=== PATIENT | male | born 1970 | race Caucasian/White ===

== ENCOUNTER 2019-05-05 10:46 | Outpatient (CLI) | payer OTHER, SELFPAY ==
[2019-05-07 15:25] LABS: SARS-CoV-2 RNA Undetected (Undetected); SARS-CoV-2 Specimen Source Nasopharynx
== END 2019-05-05 11:06 ==
PROVIDERS: PCP Internal Medicine; Visit Provider Specialist/Technologist Athletic Trainer
DX: Z20.828 Contact with and (suspected) exposure to other viral communicable diseases (principal); Z11.59 Encounter for screening for other viral diseases; R50.9 Fever, unspecified
CPT/HCPCS: 87449; U0003

== ENCOUNTER 2020-08-01 14:21 | Emergency (ER) | payer OTHER, SELFPAY ==
[2020-08-01 14:26] VITALS: BP 104/64; PULSE 97; RESP 15; TEMP 36; O2SAT 97
--- NOTE | 2020-08-01 14:30 | DI.CT_ITS ---
Exam(s) CT RENAL COLIC WO EXAM: CT RENAL COLIC WO CLINICAL HISTORY: R flank pain, nausea. TECHNIQUE: Imaging Protocol: Axial computed tomography images with coronal and sagittal reformatted images were created and reviewed CONTRAST MATERIAL: Intravenous: none Oral: None COMPARISON: CT RENAL COLIC WO CONTRAST from 05/18/2010 FINDINGS: VISUALIZED LUNG BASES: No nodules nor pleural effusions evident. ABDOMEN: There is no ascites. LIVER: Liver is somewhat hypodense implying steatosis. There are no discrete focal hepatic lesions i dentified, realizing the entire liver is not included on this renal calculus protocol study. GALLBLADDER/BILIARY: No obvious gallbladder pathology. CBD is not dilated. PANCREAS: No evidence of pancreatic mass nor dilatation of the pancreatic duct. SPLEEN: Spleen is not enlarged. No obvious intrasplenic lesions. ADRENALS: There are no significant adrenal masses. KIDNEYS:No cysts evident. No solid renal masses. No obvious hydronephrosis. Right ureter is minimal ly prominent and there is a 3 millimeter calculus at the right ureterovesical junction with mild dila tation of the collecting system above this level. No calculi seen in the actual kidneys. Parapelvic cyst in the opposite-left kidney noted which measures 2 x 1.2 cm. ABDOMINAL AORTA: Abdominal aorta is not enlarged. LYMPH NODES: There is no retroperitoneal nor paraaortic adenopathy. ABDOMINAL WALL: No evidence of significant anterior abdominal wall hernia. GI: There is no evidence of bowel obstruction, free air, nor abscess. PELVIS: LYMPH NODES: There is no intrapelvic nor inguinal adenopathy. GI: The appendix is surgically absent.There are few sigmoid diverticuli but no evidence of obvious ac [place] diverticulitis. URINARY BLADDER: Right ureterovesical junction 3 millimeter calculus. No calculi within the actual b ladder lumen. REPRODUCTIVE: Prostate gland is not enlarged. OSSEOUS: Benign-appearing hemangioma no is noted in the left side of the T11 vertebral body. IMPRESSION: 1. Main finding here is a 3-4 millimeter calculus in the lower right ureter at ureterovesical junctio n level with mild dilatation of the collecting system above this level. 2. No other focal right renal findings. 3. There is parapelvic cyst in the opposite-left kidney which measures 2 x 1.2 cm. RADIATION DOSE DELIVERED: 1,352.56mGy.cm Total DLP DATA REPOSITORY: All CT scans at this facility are submitted to the National Radiology Data Registry (NRDR) Dose Index Registry (DIR) with the [employer] (ACR). RADIATION OPTIMIZATION: All CT scans at this facility use at least one of these dose optimization te chniques: automated exposure control; mA and/or kV adjustment per patient size (includes targeted exa ms where dose is matched to clinical indication); or iterative reconstruction.
--- NOTE | 2020-08-01 14:34 | ED.GENADUL_ITS ---
Discharge Plan Disposition Patient Disposition: HOME Condition: Improving Discharge Details Clinical Impression: Right ureteral stone Primary Care Provider: Roberto Hylton ED Provider: Natalie Goldberg Home Meds and New Rx's Prescriptions: New tamsulosin [Flomax] 0.4 mg capsule 0.4 mg PO DAILY Qty: 10 RF: 0 oxycodone 5 mg tablet 5 mg PO Q6H PRN (Reason: pain) Qty: 10 RF: 0 Discharge Instructions Instructions: Kidney Stones (ED) Additional Instructions: Drink plenty of fluids and get plenty of rest. Alternate tylenol and motrin as needed and directed for pain. Take the oxycodone for pain not relieved with Tylenol or Motrin. Take Zofran as needed and directed for nausea and vomiting. Call Dr. Anton's office tomorrow morning to schedule a follow-up appointment for reevaluation this week if your symptoms do not improve or worsen. Return immediately to the emergency department if you develop any worsening or new concerning symptoms. Referrals: Tawanda Anton MD [ [facility] STAFF PHYSICIAN] - Discharge Data Discharge Date/Time-TO BE ENTERED AT DEPARTURE: 08/01/20 18:10 Discharge Physician: Natalie Goldberg Medical Decision Making 1430 -- 50-year-old male with a history of kidney stones presents with right flank pain and nausea consistent with history of kidney stones. Appears uncomfortable, pacing around the room and holding vomitus bag. Otherwise appears nontoxic. Suspect kidney stone. IV placed. Will order Toradol, Zofran, IV fluids, screening labs and CT renal colic. Labs and imaging reviewed. White blood cell count 11. Normal renal function. CT renal colic a 3 mm distal right ureteral obstruction calculus with mild to moderate right hydronephrosis and hydroureter. 1530 -- Patient reassessed and he states his pain only decreased from a 10/10 to an 8/10. We will give a dose of morphine and reassess. He has been unable to give a urine sample. 1610 -- pt reassessed - no pain relief - will give dilaudid IV and valium PO. 1700 -- patient reassessed and he feels much better and feels good to go home. Urinalysis noted 3-5 WBCs but negative bacteria, leukocyte esterase and nitrite. Patient placed on urology follow-up list. He was given prescriptions for oxycodone and Flomax and given oxycodone and Zofran to go. Usual and customary return precautions given prior to discharge. Medical Records Medical records reviewed: Yes I reviewed the patient's medical records. Imaging Data Radiologic Study: Radiologist's impression: CT Abdomen And Pelvis Without Contrast Exam date and time: 08/01/2020 2:42 PM Age: 50 years old Clinical indication: Abdominal pain TECHNIQUE: Imaging protocol: Computed tomography of the abdomen and pelvis without contrast. COMPARISON: No relevant prior studies available. FINDINGS: Liver: Normal as shown. No mass. Gallbladder and bile ducts: Gallbladder partially contracted. Pancreas: Normal. No ductal dilation. Spleen: Normal as shown. No splenomegaly. Adrenal glands: Normal. No mass. Kidneys and ureters: There is mild to moderate right hydronephrosis and hydroureter. There is a distal right ureteral obstructing calculus best seen series 2, image 108 just above the right UVJ. It measures slightly greater than 3 mm in diameter. New lines status post appendectomy. Incidental note made of parapelvic cysts at the left renal hilum. Stomach and bowel: Unremarkable. No obstruction. No mucosal thickening. Appendix: See Kidneys and ureters finding. Intraperitoneal space: Unremarkable. No free air. No significant fluid collection. Vasculature: Unremarkable. No abdominal aortic aneurysm. Lymph nodes: Unremarkable. No enlarged lymph nodes. Urinary bladder: Unremarkable as visualized. Reproductive: Unremarkable as visualized. Bones/joints: Unremarkable. No acute fracture. Soft tissues: Unremarkable. Other findings: The upper abdomen is not completely included on the exam. IMPRESSION: Distal right ureteral obstructing calculus. Lab Data Lab results reviewed: Yes I reviewed the patient's lab results. Labs: Laboratory Tests Range/Units 08/01/20 08/01/20 08/01/20 14:35 14:35 17:25 WBC (4.4-10.8) 10^3/uL 11.88 H RBC (4.36-5.78) 10^6/uL 4.75 Hgb (13.5-17.5) g/dL 14.6 Hct (40.0-50.0) % 43.0 MCV (80-95) fL 90.5 MCH (27.0-33.0) pg 30.7 MCHC (32.0-36.0) % 34.0 RDW (11.8-14.1) % 12.0 Plt Count (130-400) 10^3/uL 259 MPV (8.0-11.0) fL 9.5 Immature Gran % 0.5 Neutrophils % 57.0 Lymphocytes % 32.6 Monocytes % 7.4 Eosinophils % 1.6 Basophils % 0.9 Nucleated RBC % % 0 Absolute Neutrophils (1.2-6.7) 10^3/uL 6.77 H Absolute Lymphocytes (1.2-3.4) 10^3/uL 3.87 H Absolute Monocytes (0.1-0.8) 10^3/uL 0.88 H Absolute Eosinophils (0.0-0.7) 10^3/uL 0.19 Absolute Basophils (0.0-0.2) 10^3/uL 0.11 Sodium (136-145) mmol/L 144 Potassium (3.5-5.1) mmol/L 4.0 Chloride (98-107) mmol/L 106 Carbon Dioxide (21.0-32.0) mmol/L 28.3 Anion Gap (3-11) mmol/L 9.7 BUN (7-18) mg/dL 16 Creatinine (0.70-1.30) mg/dL 1.1 Estimated GFR/1.73 m2 (mL/min/1.73m2) >= 60.00 Glucose (74-106) mg/dL 124 H Calcium (8.5-10.1) mg/dL 8.8 Total Bilirubin (0.2-1.0) mg/dL 0.4 AST (15-37) U/L 25 ALT (16-63) U/L 45 Alkaline Phosphatase (46-116) U/L 72 Total Protein (6.4-8.2) g/dL 7.5 Albumin (3.4-5.0) g/dL 3.7 Urine Color (Yellow) Yellow Urine Clarity (Clear) Clear Urine pH (5-8) 5.5 Ur Specific [place] (1.005-1.025) >= 1.030 H Urine Protein (Negative) mg/dL 30 H Urine Ketones (Negative) mg/dL Negative Urine Blood (Negative) Negative Urine Nitrite (Negative) Negative Urine Bilirubin (Negative) Negative Urine Urobilinogen (Up TO 0.2) EU/dL 0.2 Ur Leukocyte Esterase (Negative) Negative Urine RBC (0-2) HPF 0-2 Urine WBC (0-5) HPF 3-5 Ur Epithelial Cells (Negative) HPF Negative Urine Crystals (Negative) HPF Negative Urine Bacteria (Negative) HPF Negative Urine Casts (Negative) LPF Negative Urine Mucus (Negative) Negative Urine Other (Negative) Negative Ur Culture Indicated? No Urine Glucose (Negative) mg/dL Negative HPI General Mode of arrival: ambulatory . Date/Time Provider Initiated Documentation: 08/01/20 14:24 . Limitations to Documentation: no limitations . Information obtained by: patient . HPI Narrative: Patient is a 50-year-old male with a previous history of kidney stones who presents with right-sided flank pain and nausea since yesterday. Patient states he has had intermittent flank pain over the last few months, but feels he passed a kidney stone yesterday and has had return of pain 30 minutes ago. He has not taken anything for pain today. He has been able to urinate earlier and denies any dysuria, frequency or urgency. He denies any fever, vomiting. Related Data Home Medications Medication Instructions Recorded Confirmed oxycodone 5 mg PO Q6H PRN #10 tab 08/01/20 tamsulosin [Flomax] 0.4 mg PO DAILY #10 cap 08/01/20 Previous Rx's Medication Instructions Recorded oxycodone 5 mg PO Q6H PRN #10 tab 08/01/20 tamsulosin [Flomax] 0.4 mg PO DAILY #10 cap 08/01/20 Allergies Allergy/AdvReac Type Severity Reaction Status Date / Time No Known Allergies Allergy Unverified 08/01/20 14:31 General Stated Complaint: FlankPain RAFA: 3 Review of Systems All systems reviewed & are unremarkable except as noted in HPI and below Constitutional Constitutional: Reports as per HPI, Denies chills and Denies fever(s) Eyes Eyes: Denies blurry vision ENT Ears, Nose, Mouth, and Throat: Denies dizziness, Denies sore throat and Denies throat swelling Cardiovascular Cardiovascular: Denies chest pain and Denies dyspnea Respiratory Respiratory: Denies cough and Denies dyspnea Gastrointestinal Gastrointestinal: Denies abdominal pain, Denies diarrhea, Reports nausea and Denies vomiting Genitourinary Genitourinary: Denies hematuria, Denies dysuria and Reports flank pain Musculoskeletal Musculoskeletal: Denies back pain and Denies numbness Integumentary/Breasts Skin/Breast: Denies lesions and Denies rash Neurologic Neurologic: Denies dizziness, Denies localized weakness and Denies numbness Allergic/Immunologic Allergic/Immunologic: Denies throat swelling [facility] Medical History (Updated 08/01/20 @ 17:59 by Natalie Goldberg DO) Kidney stones Surgical History (Updated 08/01/20 @ 14:35 by Natalie Goldberg DO) History of appendectomy History of back surgery disc herniation Social History Smoking/Tobacco Use Status: Current every day Tobacco Type: smokeless tobacco Smoking risk assessment performed?: Yes Alcohol Intake: current Alcohol Intake frequency: a few times a month Drug use: Never Do you feel safe at home: Yes Do you feel safe in your relationship?: Yes Exam Const General: cooperative, uncomfortable and no acute distress Orientation: alert, awake and oriented x3 HENMT Head: normal to inspection Face and sinus: normal facial exam Eyes General: appearance normal, both eyes and all related structures EOM: EOM intact bilaterally Neck Neck: normal visual inspection and No submandibular swelling Lymphatic: no lymphadenopathy noted Chest Chest: normal inspection of the chest and no tenderness Resp Effort & Inspection: normal respiratory effort and able to speak in complete sentences Auscultation: clear to auscultation bilaterally Cardio Rate: regular rate Rhythm: regular rhythm GI Inspection: normal to inspection Palpation: soft, not firm, not rigid and nontender Auscultation: normal bowel sounds Back/Spine/Pelvis Back: no CVA tenderness Skin General skin exam: no rashes or lesions noted Neuro General: patient alert, patient awake and patient oriented x3 Cognition: normal cognition Speech: speech normal Motor: muscle tone normal throughout Sensory Exam: no sensory deficits noted Extrem General: normal to inspection, full ROM, capillary refill normal, no calf tenderness bilaterally and no edema Psych Appearance: grossly normal Mental Status: mental status grossly normal Speech and Movement: speech and movement normal Affect: normal affect Course Vital Signs Vital signs: Vital Signs Temperature 96.8 F L 08/01/20 14:26 Pulse 97 H 08/01/20 14:26 Respiratory Rate 15 08/01/20 14:26 Blood Pressure 104/64 08/01/20 14:26 Pulse Oximetry 97 08/01/20 14:26 Temperature 96.8 F L 08/01/20 14:26 Temperature Source Temporal Artery Scan 08/01/20 14:26 Pulse 97 H 08/01/20 14:26 Respiratory Rate 15 08/01/20 14:26 Respiratory Effort Non-Labored 08/01/20 14:30 Blood Pressure 104/64 08/01/20 14:26 Blood Pressure Position Standing 08/01/20 14:26 Pulse Oximetry 97 08/01/20 14:26 Oxygen Delivery Method Room Air 08/01/20 14:26 Oxygen Flow Rate 0 08/01/20 14:26 Pain Level 10 08/01/20 14:26
[2020-08-01 14:54] LABS: Abs Immature Grans 0.06 10^3/uL (0.0-0.06); Absolute Basophil Count 0.11 10^3/uL (0.0-0.2); Absolute Eosinophil Count 0.19 10^3/uL (0.0-0.7); Absolute Lymphocyte Count 3.87 10^3/uL (1.2-3.4); Absolute Monocyte Count 0.88 10^3/uL (0.1-0.8); Absolute Neutrophil Count 6.77 10^3/uL (1.2-6.7); Basophils % 0.9; Eosinophils % 1.6; HGB 14.6 g/dL (13.5-17.5); Immature Grans % 0.5; Lymphocytes % 32.6; MCH 30.7 pg (27.0-33.0); MCV 90.5 fL (80-95); MPV 9.5 fL (8.0-11.0); Monocytes % 7.4; Nucleated RBC 0 %; Platelet Count 259 10^3/uL (130-400); RBC 4.75 10^6/uL (4.36-5.78); RDW-SD 39.9 fL; WBC 11.88 10^3/uL (4.4-10.8)
[2020-08-01] MEDS: Normal Saline 1,000 ML 1000 ML IV ×2 (14:58→16:04)
[2020-08-01] MEDS: Ketorolac 30 MG/ML VIAL IVP (14:58)
[2020-08-01] MEDS: Ondansetron 4 MG/2 ML VIAL IVP (14:59)
[2020-08-01 15:11] LABS: ALT 45 U/L (16-63); AST 25 U/L (15-37); Albumin 3.7 g/dL (3.4-5.0); Alkaline Phosphatase 72 U/L (46-116); Anion Gap 9.7 mmol/L (3-11); BUN 16 mg/dL (7-18); Bilirubin, Total 0.4 mg/dL (0.2-1.0); CO2 28.3 mmol/L (21.0-32.0); CREATININE 1.1 mg/dL (0.70-1.30); Calcium 8.8 mg/dL (8.5-10.1); Chloride 106 mmol/L (98-107); Glucose 124 mg/dL (74-106); Sodium 144 mmol/L (136-145); Total Protein 7.5 g/dL (6.4-8.2)
--- NOTE | 2020-08-01 15:29 | DI.VRAD_ITS ---
PROCEDURE INFORMATION: Exam: CT Abdomen And Pelvis Without Contrast Exam date and time: 08/01/2020 2:42 PM Age: 50 years old Clinical indication: Abdominal pain TECHNIQUE: Imaging protocol: Computed tomography of the abdomen and pelvis without contrast. COMPARISON: No relevant prior studies available. FINDINGS: Liver: Normal as shown. No mass. Gallbladder and bile ducts: Gallbladder partially contracted. Pancreas: Normal. No ductal dilation. Spleen: Normal as shown. No splenomegaly. Adrenal glands: Normal. No mass. Kidneys and ureters: There is mild to moderate right hydronephrosis and hydroureter. There is a distal right ureteral obstructing calculus best seen series 2, image 108 just above the right UVJ. It measures slightly greater than 3 mm in diameter. New lines status post appendectomy. Incidental note made of parapelvic cysts at the left renal hilum. Stomach and bowel: Unremarkable. No obstruction. No mucosal thickening. Appendix: See Kidneys and ureters finding. Intraperitoneal space: Unremarkable. No free air. No significant fluid collection. Vasculature: Unremarkable. No abdominal aortic aneurysm. Lymph nodes: Unremarkable. No enlarged lymph nodes. Urinary bladder: Unremarkable as visualized. Reproductive: Unremarkable as visualized. Bones/joints: Unremarkable. No acute fracture. Soft tissues: Unremarkable. Other findings: The upper abdomen is not completely included on the exam. IMPRESSION: Distal right ureteral obstructing calculus. Dictated and Authenticated by: Tiffany Carroll MD. Ordering:CHERIE Estrada MD
[2020-08-01] MEDS: HYDROmorphone 2 MG/ML VIAL 1 MG IVP (16:28)
[2020-08-01] MEDS: diazePAM 5 MG TAB PO (16:29)
[2020-08-01 17:32] LABS: Bilirubin Negative (Negative); Blood Negative (Negative); Clarity Clear (Clear); Glucose Negative (Negative); Ketones Negative (Negative); Leukocyte Esterase Negative (Negative); Nitrite Negative (Negative); Specific Gravity >= 1.030 (1.005-1.025); Urobilinogen 0.2 EU/dL (Up TO 0.2); pH 5.5 (5-8)
[2020-08-01 17:49] LABS: Bacteria Negative HPF (Negative); C & S Indicated? No; Casts Negative LPF (Negative); Crystals Negative HPF (Negative); Epithelial Cells Negative HPF (Negative); Mucus Negative (Negative); Other Cells Negative (Negative); RBC 0-2 HPF (0-2)
--- NOTE | 2020-08-02 10:18 | NUR.NOTE ---
Nursing Note: faxed referral to urology. mg
== END 2020-08-01 18:10 | disposition home or self-care (01) ==
PROVIDERS: Emergency Provider Physician Assistant; PCP Internal Medicine
DX: N20.1 Calculus of ureter (principal)
CPT/HCPCS: 36415; 80053; 96361; 96374; 96375; 99284; 74176; 81003; 81015; 85025; J1885; J2405

== ENCOUNTER 2021-05-30 10:42 | Outpatient (REF) | payer BC, SELFPAY ==
[2021-05-30 16:07] LABS: ALT 47 U/L (16-63); AST 28 U/L (15-37); Alkaline Phosphatase 83 U/L (46-116); Anion Gap 10.5 mmol/L (3-11); BUN 16 mg/dL (7-18); Bilirubin, Total 0.4 mg/dL (0.2-1.0); CO2 24.5 mmol/L (21.0-32.0); CREATININE 0.9 mg/dL (0.70-1.30); Calcium 9.3 mg/dL (8.5-10.1); Calculated LDL 122 mg/dL (<100); Chloride 104 mmol/L (98-107); Cholesterol 199 mg/dL (<200); Glucose 107 mg/dL (74-106); HDL Cholesterol 47 mg/dL (40-60); Sodium 139 mmol/L (136-145); Total Protein 7.6 g/dL (6.4-8.2); Triglyceride 154 mg/dL (<150)
[2021-05-31 10:27] LABS: HIV-1/2 Ag & Ab Screen Negative (Negative)
[2021-06-01 13:38] LABS: HCV RNA Qualitative Undetected (Undetected)
== END 2021-05-30 10:43 | disposition home or self-care (01) ==
LOC: NCHCN 10:42
PROVIDERS: PCP Internal Medicine; Visit Provider Nurse Practitioner Family
DX: Z00.00 Encounter for general adult medical examination without abnormal findings (principal); Z11.4 Encounter for screening for human immunodeficiency virus [HIV]; E66.9 Obesity, unspecified
CPT/HCPCS: 80053; 80061; 87389; 87522

== ENCOUNTER 2022-03-27 07:05 | Day surgery (SDC) | payer BC, SELFPAY ==
--- NOTE | 2022-03-26 18:56 | W.COLOREPORT ---
Date of service: 03/27/22 Time of Service: 13:47 Colonoscopy Report Date of procedure: 03/27/22 Pre-op diagnosis general: Screening colonoscopy Post-op diagnosis procedure note: same Procedure: 1.Colonoscopy Surgeon: Renan Russell Anesthesia Type: MAC Estimated blood loss (mL): 0 Pathology: none sent Complications: None Disposition: same day Indications: Screening for colorectal cancer Prep: Miralax/Dulcolax Retraction Time: >10 min Findings: Normal colon; skin tag Procedure Description: After informed consent was obtained, the patient was taken to the procedure room and placed in a left decubitus position. Monitors were applied and a time out was done. The patient's name, date of , procedure, allergies to medications, and metal in their body were reviewed. The patient was then sedated. Once sedated and comfortable, a digital rectal exam was done. External exam revealed a skin tag.. Internal exam revealed normal sphincter tone, and no palpable masses or gross blood. The colonoscope was then introduced and advanced to the cecum under direct visualization without difficulty. The ileocecal valve and appendiceal orifice were visualized. The prep was good.? ?The scope was then slowly withdrawn over 10 minutes in a circumferential manner to the rectum. In doing so, no polyps were encountered.? There? was no diverticulosis noted. The mucosa is pink and healthy.? In the rectum, the scope was retroflexed, and no internal hemorrhoids were noted.? The scope was straightened and withdrawn from the anus. The patient tolerated the procedure well, and there were no immediate complications.? The patient was taken to the Day Surgery Unit recovery?area in good condition. Follow up: 10 years
--- NOTE | 2022-03-26 18:57 | PDOC.DSDIS_ITS ---
Date of service: 03/26/22 Time of Service: 10:37 Discharge Plan Disposition Patient Disposition: Home Condition: Stable Discharge Details Attending Provider: Renan Russell Primary Care Provider: Roberto Hylton Home Meds and New Rx's Prescriptions: No Action multivitamin Tablet 1 tab PO DAILY polyethylene glycol 3350 17 gram/dose powder 238 g PO ONCE Qty: 238 0RF Rx Instructions: take per colonoscopy instructions bisacodyl [Dulcolax (bisacodyl)] 5 mg tablet,delayed release (DR/EC) 5 mg PO ONCE Qty: 4 0RF Rx Instructions: take per colonoscopy instructions Discharge Instructions Instructions: Excision of Skin Lesion (DC), Colonoscopy (DC) Additional Instructions: For pain control, alternate taking acetaminophen and ibuprofen every 4-6 hours. Do not exceed dosage listed on bottle. When recumbent, try to lay on your side and avoid direct pressure. If sitting, get up and move around at least every 2 hours. Avoid squatting, bending, and sitting for excessive amounts of time. Referrals: Joya Leon DO [OSTEOPATHIC DOCTOR] - (Call to make follow-up appt in 10- 14 days) Activity:: as above Remove Dressings/Wound Care:: 24 hours Shower/Bathe:: 24 hours Diet:: As Tolerated DS: Diagnosis Discharge Diagnosis (1) Soft tissue mass: Status: Acute Asessment and Plan: left buttock soft tissue mass, s/p excision --await pathology --local wound care --f/u in office in 10-14 days (2) Screening for colon cancer: Status: Acute Asessment and Plan: Normal colon --Repeat in 10 years
[2022-03-27 07:48] VITALS: BP 156/87; PULSE 78; RESP 20; TEMP 36.3; O2SAT 98
[2022-03-27] MEDS: Lactated Ringers 1,000 ML 80 ML IV (07:54)
--- NOTE | 2022-03-27 08:39 | W.ANESPRE ---
General Info Date of Service Date Performed: 03/27/22 Height: 5 ft 6.5 in Weight: 105.3 kg Body Mass Index (BMI): 36.8 Surgical Procedure: Operation Date: 03/27/22 08:40 Proposed Procedure Side Surgeon p Colonoscopy w/Polypectomy Renan Russell MD s Excision soft tissue mass left buttock Left Renan Russell MD Meds Allergies and Home Medications Allergies Allergy/AdvReac Type Severity Reaction Status Date / Time tetanus and diphtheria Allergy Severe effects Verified 03/27/22 07:46 toxoids area & joints where given Home Medication Medication Instructions Recorded bisacodyl 5 mg tablet,delayed 5 mg PO ONCE colonscopy bowel prep 03/10/22 release (Dulcolax (bisacodyl)) #4 tabs multivitamin 1 tab PO DAILY 03/10/22 polyethylene glycol 3350 17 238 g PO ONCE colonoscopy prep 03/10/22 gram/dose oral powder #238 grams Current Visit Medications: Current Medications Generic Name Dose Route Start Last Admin Trade Name Freq PRN Reason Stop Dose Admin Ringer's Solution 1,000 mls @ 80 mls/hr 03/27/22 06:00 03/27/22 07:54 IV 04/23/22 23:59 80 mls/hr INFUSION ABBE Administration IV Miscellaneous Supplies 1 each 03/27/22 06:00 Iv Access IV 04/23/22 23:59 DIRECTED ABBE Sodium Chloride 0 ml 03/27/22 06:00 Normal Saline Flush 10 Ml Syr IV 04/23/22 23:59 PRN PRN Sodium Chloride 0 ml 03/27/22 06:00 Normal Saline 10 Ml Vial IJ 04/23/22 23:59 DIRECTED PRN Sterile Water 0 ml 03/27/22 06:00 Water,Injection,Sterile 10 Ml Vial IJ 04/23/22 23:59 DIRECTED PRN PFSH Active Problems Active Problems: Problem Status Onset Code Right ureteral stone N20.1 Screening for colon cancer Z12.11 Ventral hernia K43.9 Obstructive sleep apnea 04/06/14 G47.33 Hip pain M25.559 Chews tobacco Z72.0 Corns and callosities L84 Pain, foot M79.673 BMI 37.0-37.9, adult Z68.37 Medical History Medical History Adjustment disorder with mixed anxiety and depressed mood Dyspepsia Elevated fasting blood sugar Eustachian tube dysfunction (04/06/14) Kidney stones Obesity Sensorineural hearing loss, unilateral (04/06/14) Sensory hearing loss (04/06/14) Flat tympanogram on the left, unknown etiology. 04/06/14 Surgical History Surgical History (Updated 03/27/22 @ 08:12 by Afua Ruiz RN) H/O vasectomy History of appendectomy 01/17/2004 History of back surgery disc herniation pt states only back surgery was on cervical spine Tobacco Smoking/Tobacco Use Status: Former Tobacco Use Smokeless tobacco user: chewing tobacco Alcohol Alcohol Intake: current Alcohol intake frequency: a few times a month Substance Use Substance use: Never Substance use type: does not use Details: using nicorette gum 2mg Vital Signs and Lab Results Vital Signs Most Recent Vital Signs in EMR: Most Recent Vital Signs Temp Pulse Resp BP Pulse Ox 36.3 C L 78 20 156/87 H 98 03/27/22 07:48 03/27/22 07:48 03/27/22 07:48 03/27/22 07:48 03/27/22 07:48 Lab Results Blood Type / Crossmatch: No Data to Display Complete Blood Count: No Data to Display Complete Metabolic Panel: No Data to Display Liver Function Panel: No Data to Display Coagulation Panel: No Data to Display Cardiac Panel: No Data to Display Arterial Blood Gas: No Data to Display Venous Blood Gas: No Data to Display Pancreas Panel: No Data to Display Thyroid Panel: No Data to Display Infectious Disease: No Data to Display Blood Cultures: No Data to Display Toxicology Panel: No Data to Display Anesthesia Assessment and Plan Anesthesia History Personal History: No History of Anesthesia Complications Family History: No Family History of Anesthesia Complications Exercise Tolerance Exercise Tolerance: Metabolic Equivalents>4 Pertinent Negatives Pertinent Negatives: No Major Cardiovascular Symptoms or Complaints, No Major Pulmonary Symptoms or Complaints and No History of CVA/TIA Cardiac & Pulmonary Exam Cardiac Exam: Normal S1/S2 Heart Sounds Pulmonary Exam: Clear Bilateral Breath Sounds Implantable Cardiac Device Does patient have a Pacemaker or an ICD?: No Airway Exam Known Difficult Airway: No Mallampati Class: 2 Mouth Opening: Normal (> 3cm) Thyromental Distance: Greater than 3 cm Neck Range of Motion: Full ROM Neck Circumference: Normal Teeth Condition: Normal Dentition Airway Comments: Does not use CPAP, is planning on reattempting. ASA Classification ASA Score: ASA 2 Emergency Case?: No NPO Status NPO Status: NPO Clears >2 hours, Solids >8 hours Anesthesia Plan Resuscitation Status: Full Code Anesthesia Technique: General Anesthesia Airway Planned: Natural Airway Monitors Used: Standard Monitors
[2022-03-27 08:41] VITALS: BMI 36.8
--- NOTE | 2022-03-27 10:06 | SOFT_PTH ---
PATIENT: Jonathan Arriaga LOC: [facility] U#:[id number] AGE/SX: 52/M ROOM: RE03/27/[address]: Renan Russell : 1970 BED: DIS: 03/27/2022 SPEC #: [id number] RECD: 03/27/22 12:53 STATUS: [place] REQ #: [id number] ERICK: 03/27/22 10:[address]: Renan Russell DEPT: Surgical Specimen RECD BY: Arelis Macias ENTERED: 03/27/22 12:54 SP TYPE: SOFT OTHR DR: Roberto Hylton Tissues: 1 - SOFT TISSUE [facility] [place] [facility] Procedures: GROSS AND MICRO LEVEL 5 Comments: [id number]
[2022-03-27] MEDS: Lidocaine 1% Pres-Free 30 ML VIAL (10:28)
--- NOTE | 2022-03-27 10:34 | W.PM.OP ---
Date of service: 03/27/22 Time of Service: 10:34 Operative Note Operative Note DATE OF PROCEDURE: 03/27/22 PRE-OP DIAGNOSIS: left buttock soft tissue mass POST-OP DIAGNOSIS: same PROCEDURE: Excision of left buttock soft tissue mass SURGEON: Renan Russell ANESTHESIA TYPE: Local By Surgeon and MAC Refer to Anesthesia Record ESTIMATED BLOOD LOSS: 5 PATHOLOGY: other (soft tissue mass; marked by suture: short superior, long lateral) COMPLICATIONS: None Patient was transported to: same day Patient's condition: stable Implants: none Indications: Left buttock soft tissue mass noticed by the patient about a year ago. It is located about 6cm from the gluteal cleft. It has been non-tender and he denies any drainage. Has not noticed a significant change in size, but it is concerning to him. Findings: Superficial soft tissue mass in the tissues adjecent to the gluteal cleft in the left buttock. Fullness extends ~3x1.5cm; No drainage, fluctuance appreciated; Does not appear to represent a fistulous tract Procedure Description: Note: This procedure immediately followed a colonoscopy documented under separate cover. After the completion of colonoscopy, the patient was prepped and draped in standard fashion. An encompassing time out was performed prior to colonoscopy. The skin and subcutaneous tissues around the lesion were infiltrated with 1% Lidocaine. An elliptical incision, parallel to the gluteal cleft, was made including the whole mass. The subcutaneous tissues were divided using electrocautery down to uninvolved subcutaneous fat. The specimen was fully excised and marked with silk suture--short superior, and long lateral. This was passed off to go to pathology. The wound was inspected, and I was satisfied the entire mass had been removed. Hemostasis and irrigation were completed. The wound edges were brought together with 3-0 Vicryl to decrease wound tension. The skin was closed using 2-0 Nylon in a veritcal mattress fashion. The rest of the local anesthetic was infiltrated. The wound was cleansed and dressed with 4x4 gauze and tape. All instrument counts were correct. The patient was awaken and taken to the same day surgery unit in stable condition.
[2022-03-27 10:36] VITALS: BP 92/79; PULSE 59; RESP 16; TEMP 36.7; O2SAT 97
[2022-03-27 11:09] VITALS: BP 126/74; PULSE 61; RESP 16; TEMP 36.5; O2SAT 97
--- NOTE | 2022-03-27 11:13 | W.ANESPOSTOP ---
Postoperative Evaluation Date, Time and Location Date Performed: 03/27/22 Time Performed: 11:13 Patient Location: Day Surgery Unit Vital Signs Most Recent Imported Vital Signs: Most Recent Vital Signs Temp Pulse Resp BP Pulse Ox 36.5 C 61 16 126/74 97 03/27/22 11:09 03/27/22 11:09 03/27/22 11:09 03/27/22 11:09 03/27/22 11:09 Pain Score Most Recent Pain Score: Most Recent Pain Score Pain Level 0 03/27/22 11:09 Assessment Mental Status: Awake (Alert & Oriented to Patient Baseline) Airway and Respiratory Function: Patent airway with normal (patient baseline) respiratory exam Cardiovascular Function: Hemodynamically Stable Hydration Status: Adequately Hydrated Nausea & Vomiting: No Nausea or Vomiting Pain: Pt. Denies Any Pain Peripheral Nerve Block: Patient did not receive a nerve block
== END 2022-03-27 11:35 | disposition home or self-care (01) ==
PROVIDERS: PCP Internal Medicine; Visit Provider Surgery
PROC: 0DJD8ZZ Inspection of Lower Intestinal Tract, Via Natural or Artificial Opening Endoscopic (ICD-10-PCS; CPT 45378; principal; 2022-03-27 08:30)
PROC: (CPT 21931; 2022-03-27 08:30)
DX: Z12.11 Encounter for screening for malignant neoplasm of colon; R22.2 Localized swelling, mass and lump, trunk; L98.8 Other specified disorders of the skin and subcutaneous tissue
CPT/HCPCS: 21931; 45378; 88304; 88307; J2250; J2704

== ENCOUNTER 2023-09-25 16:02 | Outpatient (REF) | payer BC, SELFPAY ==
[2023-09-25 17:57] LABS: ALT 87 U/L (16-63); AST 40 U/L (15-37); Albumin 3.9 g/dL (3.4-5.0); Alkaline Phosphatase 80 U/L (46-116); Anion Gap 9.7 mmol/L (3-11); BUN 19 mg/dL (7-18); Bilirubin, Total 0.63 mg/dL (0.2-1.0); CO2 28.3 mmol/L (21.0-32.0); CREATININE 1.1 mg/dL (0.70-1.30); Calcium 9.2 mg/dL (8.5-10.1); Calculated LDL 108 mg/dL (<100); Chloride 103 mmol/L (98-107); Cholesterol 178 mg/dL (<200); Estimated GFR 79.28 (mL/min/1.73m2); Glucose 136 mg/dL (74-106); HDL Cholesterol 43 mg/dL (40-60); Sodium 141 mmol/L (136-145); Total Protein 7.6 g/dL (6.4-8.2); Triglyceride 136 mg/dL (<150)
[2023-09-25 18:44] LABS: Hemoglobin A1C 5.4 % (<5.7)
== END 2023-09-25 16:03 | disposition home or self-care (01) ==
LOC: NCHCN 16:02
PROVIDERS: PCP Internal Medicine; Visit Provider Nurse Practitioner Family
DX: E66.9 Obesity, unspecified (principal)
CPT/HCPCS: 80053; 80061; 83036

== ENCOUNTER 2024-02-14 15:13 | Outpatient (REF) | payer OTHER, SELFPAY ==
[2024-02-14 15:11] LABS: Abs Immature Grans 0.05 10^3/uL (0.0-0.06); Absolute Basophil Count 0.09 10^3/uL (0.0-0.2); Absolute Eosinophil Count 0.19 10^3/uL (0.0-0.7); Absolute Lymphocyte Count 2.77 10^3/uL (1.2-3.4); Absolute Monocyte Count 0.65 10^3/uL (0.1-0.8); Absolute Neutrophil Count 4.68 10^3/uL (1.2-6.7); Basophils % 1.1 %; Eosinophils % 2.3 %; HGB 14.3 g/dL (13.5-17.5); Immature Grans % 0.6 %; Lymphocytes % 32.9 %; MCH 31.1 pg (27.0-33.0); MCHC 34.9 % (32.0-36.0); MCV 89 fL (80-95); MPV 10.1 fL (8.0-11.0); Monocytes % 7.7 %; Neutrophils % 55.4 %; Platelet Count 206 10^3/uL (130-400); RDW-SD 39.2 fL; WBC 8.43 10^3/uL (4.4-10.8)
[2024-02-14 15:28] LABS: ALT 77 U/L (16-63); AST 41 U/L (15-37); Albumin 3.9 g/dL (3.4-5.0); Alkaline Phosphatase 87 U/L (46-116); BUN 16 mg/dL (7-18); Bilirubin, Total 0.58 mg/dL (0.2-1.0); CREATININE 1.2 mg/dL (0.70-1.30); Calcium 9.2 mg/dL (8.5-10.1); Chloride 105 mmol/L (98-107); Estimated GFR 71.42 (mL/min/1.73m2); Glucose 129 mg/dL (74-106); Potassium 3.9 mmol/L (3.5-5.1); Sodium 144 mmol/L (136-145); Total Protein 7.3 g/dL (6.4-8.2)
[2024-02-15 09:32] LABS: Hepatitis A Antibody IgM Negative (Negative); Hepatitis B Core Antibody Negative (Negative); Hepatitis B surface Ag Negative (Negative); Hepatitis C Ab w Rflx HCV PCR Negative (Negative)
== END 2024-02-14 15:14 | disposition home or self-care (01) ==
LOC: NCHCN 15:13
PROVIDERS: PCP Nurse Practitioner Family; Visit Provider Nurse Practitioner Family
DX: R94.5 Abnormal results of liver function studies (principal)
CPT/HCPCS: 80053; 86704; 86709; 86803; 87340; 85025